=== PATIENT | male | born 1990 | race African-American/Black ===

== ENCOUNTER 2022-06-06 16:53 | Emergency (ER) | payer MEDICAID ==
[~2022-06-06] VITALS: Ht 177.8 cm; Wt 72.6 kg
[~2022-06-06 16:53] MED LIST: CEPH500C PO; D-ME118S33 PO; TRM50T PO
[2022-06-06] MEDS ORDERED: HYDROcodone/APAP 5 MG/325 MG (LORTAB) TAB PO ONE (17:15)
--- NOTE | 2022-06-06 17:16 | ED EENT ---
History of Present Illness General Stated Complaint: TOOTH PAIN Source: patient Exam Limitations: no limitations History of Present Illness Date Seen by Provider: Jun 06, 2022 Time Seen by Provider: 17:13 Initial Comments Patient is a 31-year-old male who presents ED with right upper dental and lower tooth pain. Pain over the past several months worse over the past few days. Was seen at [facility] 2 weeks ago was prescribed amoxicillin but did not take the full course as his pain improved. Has been taken Tylenol with very minimal improvement. Intermittent right upper facial swelling. Denies of any fever, chills, nausea, vomiting, diarrhea. Patient scheduled follow-up with a dentist on June 26. Requesting something for pain until then. Allergies and Home Medications Allergies Coded Allergies: No Known Drug Allergies (Unverified , 04/05/13) Patient Home Medication List Home Medication List Reviewed: Yes Clindamycin HCl (Clindamycin HCl) 300 Mg Capsule, 300 MG PO TID Prescribed by: RENETTA REYNA on 06/06/22 1720 D-Methorphan Hb/P-Epd Hcl/Bpm (Bromfed Dm Cough Syrup) 118 Ml Syrup, 5 ML PO Q4H PRN for COUGH Prescribed by: EILEEN MACK on 01/18/15 1321 Hydrocodone/Acetaminophen (Hydrocodone-Acetamin 5-325 mg) 5 Mg-325 Mg Tablet, 1 TAB PO Q4H PRN for PAIN-MODERATE (5-7) Prescribed by: RENETTA REYNA on 06/06/22 1720 Ibuprofen (Ibuprofen) 800 Mg Tablet, 800 MG PO Q8H PRN for PAIN Prescribed by: RENETTA REYNA on 06/06/22 1720 Review of Systems Review of Systems Constitutional: No chills, No diaphoresis, No malaise, No weakness Eyes: Denies Blurred Vision, Denies Drainage, Denies Decreased Acuity Ears: Denies Dizziness, Denies Pain Mouth: pain, swelling Throat: denies swelling, denies discharge Respiratory: No cough Cardiovascular: No chest pain Gastrointestinal: No abdominal pain, No diarrhea, No nausea, No vomiting Musculoskeletal: No back pain, No joint pain Skin: No change in color, No change in hair/nails All Other Systems Reviewed Negative Unless Noted: Yes Past Ckvgnsy-Dvdjkn-Ginycc Hx Immunizations Up To Date Tetanus Booster (TDap): More than 5yrs Seasonal Allergies Seasonal Allergies: No Past Medical History Reproductive Disorders: No Physical Exam Vital Signs Vital Signs - First Documented 06/06/22 06/06/22 17:14 17:28 Temp 36.6 Pulse 77 Resp 16 B/P (MAP) 139/86 (103) Pulse Ox 98 O2 Delivery Room Air Height, Weight, BMI Height: 5'9" Weight: 135lbs. oz. 61.099473he; BMI Method:Stated General Appearance: WD/WN, no apparent distress Eyes: bilateral eye normal inspection, bilateral eye PERRL, bilateral eye EOMI Ears: bilateral ear auricle normal, bilateral ear canal normal, bilateral ear TM normal, bilateral ear bleeding Nose: normal inspection Mouth/Throat: other (poor dentition throughout. Tenderness to the right upper and lower second molar. Decay noted throughout. Gum swelling and erythema. 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, no motor/sensory deficits, alert Progress/Results/Core Measures Results/Orders My Orders Orders - FAROOQ SORENSON Hydrocodone/Apap 5/325 Tablet (Lortab 5 (06/06/22 17:15) Medications Given in ED Current Medications Medications Dose Ordered Sig/Paige Route Start Time Stop Time Status Last Admin Dose Admin Acetaminophen/ Hydrocodone Bitart 1 ea ONCE ONCE PO 06/06/22 17:15 06/06/22 17:16 DC 06/06/22 17:24 1 EA Vital Signs/I&O 06/06/22 06/06/22 17:14 17:28 Temp 36.6 36.6 Pulse 77 82 Resp 16 17 B/P (MAP) 139/86 (103) 134/72 Pulse Ox 98 O2 Delivery Room Air Room Air Departure Communication (PCP) Patient is a 31-year-old male who presents the ED for right upper and lower dental pain. Dental pain over the past several months and has gotten worse over the past few weeks. Was placed on amoxicillin but did not finish his amoxicillin as his dental pain improved. Patient just finished his last dose. Increasing pain improved with Tylenol. Extensive decay. No obvious functional mass. No facial swelling or redness. Does not appear toxic or septic. Will discharge with few days worth of stronger pain medication. Schedule follow-up with dentist here in 2 weeks. Discharged with clindamycin since he just took amoxicillin. Discussed taking the full dose. Recommend eating with the clindamycin and consider probiotic. If any worsening symptoms return back to ED for further evaluation Impression Primary Impression: Toothache Disposition: HOME, SELF-CARE Condition: Stable Departure-Patient Inst. Decision time for Depature: 17:15 Referrals: [facility],LOCAL PHYSICIAN (PCP) Primary Care Physician Patient Instructions: Dental Pain Scripts Ibuprofen (Ibuprofen) 800 Mg Tablet 800 MG PO Q8H PRN for PAIN, #16 TAB Prov: FAROOQ SORENSON 06/06/22 Hydrocodone/Acetaminophen (Hydrocodone-Acetamin 5-325 mg) 5 Mg-325 Mg Tablet 1 TAB PO Q4H PRN for PAIN-MODERATE (5-7), #8 TAB Prov: FAROOQ SORENSON 06/06/22 Clindamycin HCl (Clindamycin HCl) 300 Mg Capsule 300 MG PO TID for 7 Days, #21 CAP Prov: FAROOQ SORENSON 06/06/22 FAROOQ SORENSON Jun 06, 2022 17:16
[2022-06-06] MEDS ORDERED: ACHD5005 PO (17:20)
[2022-06-06] MEDS ORDERED: IBUP-1780 PO (17:20)
[2022-06-06] MEDS ORDERED: CLIN-144 PO (17:20)
[2022-06-06 17:28] VITALS: BP 134/72
== END 2022-06-06 17:28 | disposition home or self-care (01) ==
LOC: EDUNIT# 16:53 → ER 16:57
DX: K08.89 Other specified disorders of teeth and supporting structures (principal); Z28.310 Unvaccinated for COVID-19
CPT/HCPCS: 99283

== ENCOUNTER 2022-06-26 15:37 | Emergency (ER) | payer MEDICAID ==
[~2022-06-26] VITALS: Ht 177.8 cm; Wt 74.8 kg
[~2022-06-26 15:37] MED LIST changes: +ACHD5005 PO; +CLIN-144 PO; +IBUP-1780 PO
[2022-06-26] MEDS ORDERED: ASPIRIN 81 MG CHEW (CHILDREN'S ASA) PO ONE (16:00)
[2022-06-26 16:05] LABS: BASOPHILS # (AUTO) 0.1 10^3/uL (0.0-0.1); BASOPHILS % (AUTO) 1 % (0-10); EOSINOPHILS # (AUTO) 0.2 10^3/uL (0.0-0.3); EOSINOPHILS % (AUTO) 2 % (0-10); HEMATOCRIT 46 % (40-54); HEMOGLOBIN 15.6 g/dL (13.3-17.7); LYMPHOCYTES # (AUTO) 1.9 10^3/uL (1.0-4.0); LYMPHOCYTES % (AUTO) 20 % (12-44); MEAN CORPUSCULAR HEMOGLOBIN 33 pg (25-34); MEAN CORPUSCULAR HGB CONC 34 g/dL (32-36); MEAN CORPUSCULAR VOLUME 95 fL (80-99); MEAN PLATELET VOLUME 9.4 fL (9.0-12.2); MONOCYTES # (AUTO) 0.6 10^3/uL (0.0-1.0); MONOCYTES % (AUTO) 6 % (0-12); NEUTROPHILS % (AUTO) 71 % (42-75); PLATELET COUNT 382 10^3/uL (130-400); WHITE BLOOD COUNT 9.8 10^3/uL (4.3-11.0)
--- NOTE | 2022-06-26 16:07 | ED Chest Pain ---
General Chief Complaint: Chest Pain Stated Complaint: SOA/LEFT ARM PAIN Source: patient Exam Limitations: no limitations History of Present Illness Date Seen by Provider: Jun 26, 2022 Time Seen by Provider: 16:06 Initial Comments Patient is a 31-year-old male who presents ED for chest tightness, shortness of breath and left arm pain. He states he has been feeling short of breath over the past 2 months. Denies of any wheezing or cough. Started having chest t ightness started 3 days ago located substernal without radiation. Initially was intermittent but been constant since last night. Start developing pain to the left shoulder with numbness and tingling to the left hand. Denies history of similar symptoms. History of marijuana use. Drinks alcohol periodically. Denies nausea, vomiting, diarrhea fever, chills. Denies syncope with exertion. No family history of sudden cardiac . Denies history of hypertension, diabetes or high cholesterol. Allergies and Home Medications Allergies Coded Allergies: No Known Drug Allergies (Unverified , 04/05/13) Patient Home Medication List Home Medication List Reviewed: Yes Albuterol Sulfate (Proair Hfa) 1 Puff Puff, 2 PUFF IH Q4H Prescribed by: RENETTA REYNA on 06/26/22 191 Clindamycin HCl (Clindamycin HCl) 300 Mg Capsule, 300 MG PO TID Prescribed by: RENETTA REYNA on 06/06/221719 D-Methorphan Hb/P-Epd Hcl/Bpm (Bromfed Dm Cough Syrup) 118 Ml Syrup, 5 ML PO Q4H PRN for COUGH Prescribed by: EILEEN MACK on 01/18/15 1321 Hydrocodone/Acetaminophen (Hydrocodone-Acetamin 5-325 mg) 5 Mg-325 Mg Tablet, 1 TAB PO Q4H PRN for PAIN-MODERATE (5-7) Prescribed by: RENETTA REYNA on 06/06/22 172 Ibuprofen (Ibuprofen) 800 Mg Tablet, 800 MG PO Q8H PRN for PAIN Prescribed by: RENETTA REYNA on 06/06/22 172 Review of Systems Review of Systems Constitutional: No chills, No diaphoresis, No malaise, No weakness EENTM: No Blurred Vision, No Double Vision, No Eye Pain Respiratory: Denies Cough, Denies Orthopnea; Shortness of Air Gastrointestinal: Denies Abdominal Pain Genitourinary: Denies Burning, Denies Discharge, Denies Frequency Musculoskeletal: No back pain, No joint pain All Other Systems Reviewed Negative Unless Noted: Yes Past Hqofpuf-Cgbufz-Beipos Hx Immunizations Up To Date Tetanus Booster (TDap): More than 5yrs Seasonal Allergies Seasonal Allergies: No Past Medical History Reproductive Disorders: No Physical Exam Vital Signs Vital Signs - First Documented Capillary Refill : Height, Weight, BMI Height: 5'9" Weight: 135lbs. oz. 61.039157tk; 22.00 BMI Method:Stated General Appearance: No Apparent Distress, WD/WN HEENT: PERRL/EOMI, TMs Normal, Normal ENT Inspection, Pharynx Normal Neck: Full Range of Motion, Normal Inspection, Non Tender, Supple Respiratory: Chest Non Tender, Lungs Clear, Normal Breath Sounds, No Accessory Muscle Use, No Respiratory Distress Cardiovascular: Regular Rate, Rhythm, No Edema, No Gallop Gastrointestinal: Normal Bowel Sounds, No Organomegaly, No Pulsatile Mass, Non Tender Extremity: Normal Capillary Refill, Normal Inspection, Normal Range of Motion, Non Tender Neurologic/Psychiatric: Alert, Oriented x3, No Motor/Sensory Deficits, Normal Mood/Affect, 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 Skin: Normal Color, Warm/Dry Progress/Results/Core Measures Results/Orders Lab Results Laboratory Tests Test 06/26/22 15:55 06/26/22 16:32 06/26/22 18:35 Range/Units White Blood Count 9.8 4.3-11.0 10^3/uL Red Blood Count 4.80 4.30-5.52 10^6/uL Hemoglobin 15.6 13.3-17.7 g/dL Hematocrit 46 40-54 % Mean Corpuscular Volume 95 80-99 fL Mean Corpuscular Hemoglobin 33 25-34 pg Mean Corpuscular Hemoglobin Concent 34 32-36 g/dL Red Cell Distribution Width 12.0 10.0-14.5 % Platelet Count 382 130-400 10^3/uL Mean Platelet Volume 9.4 9.0-12.2 fL Immature Granulocyte % (Auto) 0 % Neutrophils (%) (Auto) 71 42-75 % Lymphocytes (%) (Auto) 20 12-44 % Monocytes (%) (Auto) 6 0-12 % Eosinophils (%) (Auto) 2 0-10 % Basophils (%) (Auto) 1 0-10 % Neutrophils # (Auto) 7.0 1.8-7.8 10^3/uL Lymphocytes # (Auto) 1.9 1.0-4.0 10^3/uL Monocytes # (Auto) 0.6 0.0-1.0 10^3/uL Eosinophils # (Auto) 0.2 0.0-0.3 10^3/uL Basophils # (Auto) 0.1 0.0-0.1 10^3/uL Immature Granulocyte # (Auto) 0.0 0.0-0.1 10^3/uL Prothrombin Time 14.3 12.2-14.7 SEC INR Comment 1.1 0.8-1.4 Activated Partial Thromboplast Time 31 24-35 SEC D-Dimer < 0.20 0.00-0.49 UG/ML Sodium Level 140 135-145 MMOL/L Potassium Level 3.9 3.6-5.0 MMOL/L Chloride Level 103 98-107 MMOL/L Carbon Dioxide Level 25 21-32 MMOL/L Anion Gap 12 5-14 MMOL/L Blood Urea Nitrogen 10 7-18 MG/DL Creatinine 0.86 0.60-1.30 MG/DL Estimat Glomerular Filtration Rate 119 BUN/Creatinine Ratio 12 Glucose Level 86 70-105 MG/DL Calcium Level 9.4 8.5-10.1 MG/DL Corrected Calcium 8.5-10.1 MG/DL Magnesium Level 2.0 1.6-2.4 MG/DL Total Bilirubin 1.0 0.1-1.0 MG/DL Aspartate Amino Transf (AST/SGOT) 16 5-34 U/L Alanine Aminotransferase (ALT/SGPT) 15 0-55 U/L Alkaline Phosphatase 56 40-136 U/L Myoglobin 22.2 10.0-92.0 NG/ML Troponin I < 0.028 < 0.028 <0.028 NG/ML B-Type Natriuretic Peptide < 10.0 <100.0 PG/ML Total Protein 7.8 6.4-8.2 GM/DL Albumin 4.8 H 3.2-4.5 GM/DL Thyroid Stimulating Hormone (TSH) 0.21 L 0.35-4.94 UIU/ML Urine Opiates Screen POSITIVE H NEGATIVE Urine Oxycodone Screen NEGATIVE NEGATIVE Urine Methadone Screen NEGATIVE NEGATIVE Urine Propoxyphene Screen NEGATIVE NEGATIVE Urine Barbiturates Screen NEGATIVE NEGATIVE Ur Tricyclic Antidepressants Screen NEGATIVE NEGATIVE Urine Phencyclidine Screen NEGATIVE NEGATIVE Urine Amphetamines Screen NEGATIVE NEGATIVE Urine Methamphetamines Screen NEGATIVE NEGATIVE Urine Benzodiazepines Screen NEGATIVE NEGATIVE Urine Cocaine Screen NEGATIVE NEGATIVE Urine Cannabinoids Screen POSITIVE H NEGATIVE My Orders Orders - FAROOQ SORENSON PA Ekg Tracing (06/26/22 15:47) Cbc With Automated Diff (06/26/22 15:58) Magnesium (06/26/22 15:58) Chest 1 View, Ap/Pa Only (06/26/22 15:58) Ekg Tracing (06/26/22 15:58) Comprehensive Metabolic Panel (06/26/22 15:58) Myoglobin Serum (06/26/22 15:58) Protime With Inr (06/26/22 15:58) Partial Thromboplastin Time (06/26/22 15:58) Ed Iv/Invasive Line Start (06/26/22 15:58) Bnp [place] (06/26/22 15:58) Fibrin Degradation Products (06/26/22 15:58) Troponin I [place] (06/26/22 15:58) Aspirin Chewable Tablet (Baby Aspirin Ch (06/26/22 16:00) Drug Screen Stat (Urine) (06/26/22 16:23) Morphine Injection (Morphine Injection (06/26/22 17:00) Thyroid Stimulating Hormone (06/26/22 17:08) Troponin I [place] (06/26/22 18:09) Ketorolac Injection (Toradol Injection) (06/26/22 18:30) Medications Given in ED Current Medications Medications Dose Ordered Sig/Paige Route Start Time Stop Time Status Last Admin Dose Admin Aspirin 324 mg ONCE ONCE PO 06/26/22 16:00 06/26/22 16:01 DC 06/26/22 16:15 324 MG Ketorolac Tromethamine 30 mg ONCE ONCE IVP 06/26/22 18:30 06/26/22 18:31 DC 06/26/22 18:44 30 MG Morphine Sulfate 4 mg ONCE ONCE IVP 06/26/22 17:00 06/26/22 17:01 DC 06/26/22 17:03 4 MG Vital Signs/I&O 06/26/22 06/26/22 06/26/22 15:46 15:46 19:31 Temp 36.8 Pulse 100 98 Resp 18 16 B/P (MAP) 156/90 (112) 123/90 Pulse Ox 99 98 O2 Delivery Room Air Room Air Room Air Departure Communication (PCP) Patient is a 31-year-old male presents ED chest pain shortness of breath. Shortness of breath for the past 2 months with this chest tightness for the past 3 days worse last night with tingling in his left arm. No known cardiac history. No family history of sudden cardiac . Denies hypertension, diabetes or high cholesterol. He remains hypertensive 150 systolic with multiple reads. This improved once pain improved. Was initially given morphine on arrival rated pain 3 out of 10 and was given Toradol with significant improvement. Does smoke marijuana and smokes cigarettes daily. No history of asthma, COPD. EKG was concerning for LVH pattern with ST depression in the inferior and lateral leads. Concerning for potential right heart strain. D- dimer was negative. Chest x-ray was unremarkable. Lab work was otherwise unremarkable with an initial negative troponin. 2-hour troponin was negative as well. Did get a full aspirin on arrival. Denies excessive caffeine use. Slightly lower TSH 0.21. Normal white blood count. His does not appear to be infectious. Concerning for cardiac versus pulmonary etiology. Other potential possibility would be hypertrophic cardiomyopathy. Patient was discussed with Dr. Moe who went over the case with myself and discussed outpatient follow- up as he is currently pain-free in the office. Did discuss starting on metoprolol but patient had 2 or 3 improving blood pressure medication. Recommend no running or exerting himself until seen by cardiology. Did discuss trying albuterol inhaler if this is some form of pulmonary component. No notable wheezing noted. Discussed smoking cessation. If any worsening symptoms such as chest pain to return back to ED. Impression Primary Impression: Chest pain Additional Impression: Dyspnea Disposition: 01 HOME, SELF-CARE Condition: Stable Departure-Patient Inst. Decision time for Depature: 19:16 Referrals: NO,LOCAL PHYSICIAN (PCP) Primary Care Physician AIDEE MOE JR, MD Patient Instructions: Chest Pain, Adult ED Add. Discharge Instructions: You need to follow-up with cardiology for further evaluation. Recommend no exercise, or exerting yourself at a high rate. We will provide inhaler to take as needed to see if this will help with any of the shortness of breath and chest tightness All discharge instructions reviewed with patient and/or family. Voiced understanding. Scripts Albuterol Sulfate (PROAIR HFA) 1 Puff Puff 2 PUFF IH Q4H, #1 EA 1 PUFF = 90 MCG Prov: FAROOQ SORENSON 06/26/22 FAROOQ SORENSON Jun 26, 2022 16:07
[2022-06-26 16:14] LABS: ALBUMIN 4.8 GM/DL (3.2-4.5)
[2022-06-26 16:15] LABS: CHLORIDE 103 MMOL/L (98-107); POTASSIUM 3.9 MMOL/L (3.6-5.0); SODIUM 140 MMOL/L (135-145)
[2022-06-26 16:16] LABS: CALCIUM 9.4 MG/DL (8.5-10.1)
[2022-06-26 16:17] LABS: GLUCOSE 86 MG/DL (70-105); TOTAL PROTEIN 7.8 GM/DL (6.4-8.2)
[2022-06-26 16:18] LABS: CARBON DIOXIDE 25 MMOL/L (21-32); INR 1.1 (0.8-1.4); PROTHROMBIN TIME PATIENT 14.3 SEC (12.2-14.7)
[2022-06-26 16:20] LABS: ALKALINE PHOSPHATASE 56 U/L (40-136)
[2022-06-26 16:21] LABS: CREATININE SERUM 0.86 MG/DL (0.60-1.30); GFR ESTIMATED 119
[2022-06-26 16:22] LABS: BUN/CREATININE RATIO 12
[2022-06-26 16:24] LABS: ALANINE AMINOTRANSFERASE 15 U/L (0-55)
[2022-06-26 16:50] LABS: AMPHETAMINE SCREEN, URINE NEGATIVE (NEGATIVE); BARBITURATE SCREEN URINE NEGATIVE (NEGATIVE); BENZODIAZEPINES SCREEN URINE NEGATIVE (NEGATIVE); CANNABINOID SCREEN, URINE POSITIVE (NEGATIVE); COCAINE SCREEN URINE NEGATIVE (NEGATIVE); METHADONE STAT NEGATIVE (NEGATIVE); OPIATE SCREEN URINE POSITIVE (NEGATIVE); OXYCODONE STAT NEGATIVE (NEGATIVE); PROPOXYPHENE STAT NEGATIVE (NEGATIVE); TRICYCLIC ANTIDEPRESSANTS SCRE NEGATIVE (NEGATIVE)
--- NOTE | 2022-06-26 16:56 | Diagnostic Imaging Report ---
INDICATION: Chest pain COMPARISON: 11/11/2015 FINDINGS: Single frontal view of the chest demonstrates normal heart size and pulmonary vascularity. The lungs are well aerated and clear. No large pleural effusion or pneumothorax is seen. The visualized osseous structures show no acute abnormalities. IMPRESSION: 1. No acute cardiopulmonary process. Dictated by: Dictated on workstation # [id number]
[2022-06-26] MEDS ORDERED: morphine INJ 10 MG/ML 1ML (SYR OR VIAL) IVP ONE (17:00)
[2022-06-26] MEDS ORDERED: KETOROLAC 30 MG/ML VIAL IVP ONE (18:30)
[2022-06-26] MEDS ORDERED: RT-ALBUINH IH (19:17)
[2022-06-26 19:31] VITALS: BP 123/90
== END 2022-06-26 19:23 | disposition home or self-care (01) ==
LOC: EDUNIT# 15:37 → ER 15:40
DX: R07.2 Precordial pain (principal); R06.00 Dyspnea, unspecified; M25.512 Pain in left shoulder; R03.0 Elevated blood-pressure reading, without diagnosis of hypertension; R94.6 Abnormal results of thyroid function studies; F17.210 Nicotine dependence, cigarettes, uncomplicated; Z28.310 Unvaccinated for COVID-19
CPT/HCPCS: 36415; 71045; 80053; 80306; 83735; 83874; 83880; 84443; 84484; 85025; 85379; 85610; 85730; 93005

== ENCOUNTER 2022-07-15 23:54 | Emergency (ER) | payer MEDICAID ==
[~2022-07-15] VITALS: Ht 177.8 cm; Wt 70.5 kg
[~2022-07-15 23:54] MED LIST changes: +RT-ALBUINH IH
[2022-07-16 05:22] VITALS: BP 130/82
== END 2022-07-16 05:19 | disposition left against medical advice (07) ==
LOC: EDUNIT# 23:54 → ER 23:57
DX: R07.89 Other chest pain (principal); R00.2 Palpitations; Z28.310 Unvaccinated for COVID-19; Z20.822 Contact with and (suspected) exposure to COVID-19
CPT/HCPCS: 87636; 99285

== ENCOUNTER 2022-08-21 10:38 | Emergency (ER) | payer MEDICAID ==
[~2022-08-21] VITALS: Ht 178 cm; Wt 75.0 kg
--- NOTE | 2022-08-21 10:47 | ED General ---
General Chief Complaint: Dental Problems/Pain Stated Complaint: DENTAL PAIN Source of Information: Patient Exam Limitations: No Limitations History of Present Illness Date Seen by Provider: Aug 21, 2022 Time Seen by Provider: 10:42 Initial Comments 32-year-old male presents for right upper dental pain. He has had pain in this area before. He had a tooth pulled previously but he thinks the tooth next to it is the problem currently. No fevers or chills. He has pain with eating and pressure to the tooth but none outside of that. He has not tried anything for pain. No difficulty swallowing. Allergies and Home Medications Allergies Coded Allergies: No Known Drug Allergies (Unverified , 04/05/13) Patient Home Medication List Home Medication List Reviewed: Yes Albuterol Sulfate (Proair Hfa) 1 Puff Puff, 2 PUFF IH Q4H Prescribed by: RENETTA REYNA on 06/26/22 191 Clindamycin HCl (Clindamycin HCl) 300 Mg Capsule, 300 MG PO TID Prescribed by: RENETTA REYNA on 06/06/22 1720 D-Methorphan Hb/P-Epd Hcl/Bpm (Bromfed Dm Cough Syrup) 118 Ml Syrup, 5 ML PO Q4H PRN for COUGH Prescribed by: EILEEN MACK on 01/18/15 1321 Hydrocodone/Acetaminophen (Hydrocodone-Acetamin 5-325 mg) 5 Mg-325 Mg Tablet, 1 TAB PO Q4H PRN for PAIN-MODERATE (5-7) Prescribed by: RENETTA REYNA on 06/06/22 1720 Ibuprofen (Ibuprofen) 800 Mg Tablet, 800 MG PO Q8H PRN for PAIN Prescribed by: RENETTA REYNA on 06/06/22 1720 Penicillin V Potassium (Penicillin V Potassium) 500 Mg Tablet, 500 MG PO TID Prescribed by: YESSI BOWERS MD on 08/21/22 1054 Review of Systems Review of Systems Constitutional: no symptoms reported EENTM: other (Right upper dental pain) Respiratory: no symptoms reported Cardiovascular: no symptoms reported Gastrointestinal: no symptoms reported Genitourinary: no symptoms reported Musculoskeletal: no symptoms reported Skin: no symptoms reported Psychiatric/Neurological: No Symptoms Reported Hematologic/Lymphatic: No Symptoms Reported Immunological/Allergic: no symptoms reported Past Pkkgayo-Mygjpm-Cclmup Hx Patient Social History Tobacco Use?: Yes Use of E-Cig and/or Vaping dev: No Substance use?: No Alcohol Use?: No Immunizations Up To Date Tetanus Booster (TDap): More than 5yrs First/Initial COVID19 Vaccinat: N/A Seasonal Allergies Seasonal Allergies: No Past Medical History Surgery/Hospitalization HX: DENIES Reproductive Disorders: No Family Medical History Reviewed Nursing Family Hx No Pertinent Family Hx Physical Exam Vital Signs Vital Signs - First Documented 08/21/22 10:43 Temp 36.5 Pulse 69 Resp 18 B/P (MAP) 152/92 (112) O2 Delivery Room Air Capillary Refill : Height, Weight, BMI Height: 5'9" Weight: 135lbs. oz. 61.543632vq; 22.00 BMI Method:Stated General Appearance: No Apparent Distress, WD/WN HEENT: Normal ENT Inspection, Pharynx Normal, Other (Dental caries posterior aspect of the premolar on the right upper jaw. No drainable abscess.) Neck: Normal Inspection, Non Tender, Supple Respiratory: Chest Non Tender, Lungs Clear, Normal Breath Sounds, No Accessory Muscle Use, No Respiratory Distress Cardiovascular: Regular Rate, Rhythm, No Edema, No Gallop, No JVD, No Murmur, Normal Peripheral Pulses Gastrointestinal: Normal Bowel Sounds, No Organomegaly, No Pulsatile Mass, Non Tender, Soft Extremity: Normal Capillary Refill, Normal Inspection, Normal Range of Motion, Non Tender, No Calf Tenderness Neurologic/Psychiatric: Alert, Oriented x3, Normal Mood/Affect Progress/Results/Core Measures Suspected Sepsis SIRS Temperature: Pulse: Respiratory Rate: Blood Pressure / Mean: Results/Orders Vital Signs/I&O 08/21/22 10:43 Temp 36.5 Pulse 69 Resp 18 B/P (MAP) 152/92 (112) O2 Delivery Room Air Capillary Refill : Departure Communication (Admissions) Patient is hemodynamically stable. No evidence for dental abscess that requires drainage. We will start him on antibiotics. Given recommendations for pain control and dental follow-up. Impression Primary Impression: Infected dental caries Disposition: HOME, SELF-CARE Condition: Stable Departure-Patient Inst. Decision time for Depature: 10:53 Referrals: NO,LOCAL PHYSICIAN (PCP/Family) Primary Care Physician Patient Instructions: Dental Pain Add. Discharge Instructions: Take the antibiotics as prescribed until they are gone. Call the dentist to schedule a follow-up appointment. Use ibuprofen and Tylenol as needed for pain. Return to the emergency department for any severe concerns All discharge instructions reviewed with patient and/or family. Voiced u nderstanding. Scripts Penicillin V Potassium (Penicillin V Potassium) 500 Mg Tablet 500 MG PO TID for 7 Days, #21 TAB Prov: YESSI BOWERS DO 08/21/22 YESSI BOWERS DO Aug 21, 2022 10:47
[2022-08-21] MEDS ORDERED: PENI500T PO (10:54)
[2022-08-21 10:58] VITALS: BP 152/92
== END 2022-08-21 10:58 | disposition home or self-care (01) ==
LOC: EDUNIT# 10:38 → ER 10:41
DX: K02.9 Dental caries, unspecified (principal); Z72.0 Tobacco use; Z28.310 Unvaccinated for COVID-19
CPT/HCPCS: 99282

== ENCOUNTER 2023-01-24 15:09 | Emergency (ER) | payer MEDICAID ==
[~2023-01-24] VITALS: Ht 175 cm; Wt 72.6 kg
[~2023-01-24 15:09] MED LIST changes: +ALBU8.5H6 IH; +PENI500T PO; -RT-ALBUINH IH
--- NOTE | 2023-01-24 15:24 | ED Upper Extremity ---
General Chief Complaint: Upper Extremity Stated Complaint: RIGHT HAND INJURY Source: patient Exam Limitations: no limitations (FAROOQ SORENSON) History of Present Illness Date Seen by Provider: Jan 24, 2023 Time Seen by Provider: 15:21 Initial Comments Patient is a 32-year-old male who presents ED with right hand pain. Patient states he was boxing last night around 1030. States he punched a corner of a door frm. The door frame did not break. Had immediate pain to his thumb and index finger on his right hand. Took Tylenol. Increase in swelling with decreased range of motion. No obvious bone deformity. No history of previous fracture. He reports 1 punch. Denies of any wrist pain, fever, chills, nausea, vomit, diarrhea. (FAROOQ SORENSON) Allergies and Home Medications Allergies Coded Allergies: No Known Drug Allergies (Unverified , 04/05/13) Patient Home Medication List Home Medication List Reviewed: Yes (FAROOQ SORENSON) Albuterol Sulfate (Ventolin Hfa) 1 Puff Puff, 2 PUFF IH Q4H Prescribed by: RENETTA REYNA on 06/26/22 191 Clindamycin HCl (Clindamycin HCl) 300 Mg Capsule, 300 MG PO TID Prescribed by: RENETTA REYNA on 06/06/22 172 D-Methorphan Hb/P-Epd Hcl/Bpm (Bromfed Dm Cough Syrup) 118 Ml Syrup, 5 ML PO Q4H PRN for COUGH Prescribed by: EILEEN MACK on 01/18/15 1321 Hydrocodone/Acetaminophen (Hydrocodone-Acetamin 5-325 mg) 5 Mg-325 Mg Tablet, 1 TAB PO Q4H PRN for PAIN-MODERATE (5-7) Prescribed by: RENETTA REYNA on 06/06/22 1720 Ibuprofen (Ibuprofen) 800 Mg Tablet, 800 MG PO Q8H PRN for PAIN Prescribed by: RENETTA REYNA on 06/06/22 1720 Ibuprofen (Ibuprofen) 600 Mg Tablet, 600 MG PO Q6H Prescribed by: RENETTA REYNA on 01/24/23 1610 Penicillin V Potassium (Penicillin V Potassium) 500 Mg Tablet, 500 MG PO TID Prescribed by: YESSI BOWERS MD on 08/21/22 1054 Review of Systems Constitutional: No chills, No diaphoresis EENTM: No ear pain, No blurred vision, No dental problems, No mouth pain, No mouth swelling, No nose pain, No throat pain Respiratory: No cough, No dyspnea on exertion Cardiovascular: No chest pain Gastrointestinal: No abdominal pain, No diarrhea, No nausea, No vomiting Genitourinary: No decreased output, No discharge Musculoskeletal: No back pain; joint pain, joint swelling Skin: No change in color, No change in hair/nails (FAROOQ SORENSON) All Other Systems Reviewed Negative Unless Noted: Yes (FAROOQ SORENSON) Past Hqbccso-Bssrqk-Ppgewz Hx Immunizations Up To Date Tetanus Booster (TDap): More than 5yrs First/Initial COVID19 Vaccinat: N/A Second COVID19 Vaccination Anthony: N/A Third COVID19 Vaccination Date: N/A (FAROOQ SORENSON) Seasonal Allergies Seasonal Allergies: No (FAROOQ SORENSON) Past Medical History Surgery/Hospitalization HX: DENIES Reproductive Disorders: No (FAROOQ SORENSON) Family Medical History No Pertinent Family Hx (FAROOQ SORENSON) Physical Exam Vital Signs Vital Signs - First Documented 01/24/23 15:13 Temp 37.0 Pulse 102 Resp 18 B/P (MAP) 145/83 (103) Pulse Ox 99 O2 Delivery Room Air (MARZENA,MALLIKA K DO) Vital Signs Capillary Refill : (FAROOQ SORENSON) Height, Weight, BMI Height: 5'9" Weight: 135lbs. oz. 61.105921ax; 23.00 BMI Method:Stated General Appearance: WD/WN, no apparent distress HEENT: PERRL/EOMI, normal ENT inspection, TMs normal, pharynx normal Neck: non-tender, full range of motion, supple Cardiovascular: regular rate, rhythm, no edema, no gallop, no JVD Respiratory: chest non-tender, lungs clear, normal breath sounds, no respirat ory distress, no accessory muscle use Gastrointestinal: normal bowel sounds, non tender, soft Back: normal inspection, no CVA tenderness Shoulder: normal inspection, non-tender Elbow/Forearm: normal inspection, non-tender, no evidence of injury, normal ROM Wrist: Yes normal inspection, Yes non-tender, Yes no evidence of injury, Yes normal ROM Hand: Right, bone tenderness (First index PIP joint tenderness, first MCP joint tenderness with swelling noted to the dorsum hand along the thumb and first index. Limited flexion of the index finger.) Neurologic/Psychiatric: drapery operator II-XII nml as tested, no motor/sensory deficits, alert, normal mood/affect, oriented x 3 Skin: normal color, warm/dry (FAROOQ SORENSON) Departure Communication (PCP) Patient presents ED with right hand pain to the index finger and thumb. Tenderness to the right proximal thumb, index at the DIP, PIP and MCP joint. Significant swelling. Ice was applied. Was given ibuprofen. Due to mechanism of injury x-ray was ordered to rule out acute fracture, muscle contusion. X-ray shows mildly displaced intra-articular fracture of the dorsal aspect of the base of the second distal phalanx. Discussed these results with patient. Patient was placed in a splint for comfort immobilization. Orthopedic follow-up in 7 to 10 days for reevaluation. Ice and anti-inflammatories for pain and swelling. Return precautions were discussed with patient. (FAROOQ SORENSON) Impression Primary Impression: Finger fracture Disposition: 01 HOME, SELF-CARE Condition: Stable Departure-Patient Inst. Decision time for Depature: 16:10 (FAROOQ SORENSON) Referrals: NO,LOCAL PHYSICIAN (PCP) Primary Care Physician DORIAN GABRIEL MD Patient Instructions: Finger Fracture ED Add. Discharge Instructions: Recommend following up with orthopedic in the next 1 to 2 weeks for reevaluation with x-ray. Ibuprofen to help with pain and swelling. Ice for the next 3 to 4 days at least 3-4 times a day for 20 minutes each All discharge instructions reviewed with patient and/or family. Voiced understanding. Scripts Ibuprofen (Ibuprofen) 600 Mg Tablet 600 MG PO Q6H for PAIN, #20 TAB 0 Refills Prov: FAROOQ SORENSON 01/24/23 ATTENDING PHYSICIAN NOTE: I WAS PHYSICALLY PRESENT ER PHYSICIAN, BUT I WAS NOT INVOLVED IN ANY DECISION MAKING OR ANY CARE OF THIS PATIENT, AND I AM NOT COLLABORATING PHYSICIAN. (MARZENAMALLIKA ZACHARY A PA Jan 24, 2023 15:24 MALLIKA IVAN DO Jan 25, 2023 06:38
[2023-01-24] MEDS ORDERED: IBUPROFEN 600 MG (MOTRIN) TAB PO ONE (15:30)
--- NOTE | 2023-01-24 15:44 | Diagnostic Imaging Report ---
EXAMINATION: Right hand radiographs, 3 views. COMPARISON: None. HISTORY: 32-year-old male, right hand swelling and pain. FINDINGS: There is a healed remote prior fracture deformity of the distal aspect of the fifth metacarpal. There is a mildly displaced intra-articular fracture involving the dorsal aspect of the base of what appears to be the second distal phalanx, best seen on the lateral view. Recommend correlation for focal pain at this exact site. There is no otherwise identified potential acute fracture. There is no radiopaque foreign body. IMPRESSION: 1. Mildly displaced intra-articular fracture of the dorsal aspect of the base of what appears to be the second distal phalanx. Recommend correlation for focal pain at this exact site. 2. Healed prior fracture deformity of the distal aspect of the fifth metacarpal. Dictated by: Dictated on workstation # [id number]
[2023-01-24 16:07] VITALS: BP 106/86
[2023-01-24] MEDS ORDERED: IBUP-1773 PO (16:10)
== END 2023-01-24 16:16 | disposition home or self-care (01) ==
LOC: EDUNIT# 15:09 → ER 15:11
DX: S62.630A Displaced fracture of distal phalanx of right index finger, initial encounter for closed fracture (principal); Z28.310 Unvaccinated for COVID-19; Y04.8XXA Assault by other bodily force, initial encounter
CPT/HCPCS: 29130; 73130

== ENCOUNTER 2023-02-12 15:32 | Emergency (ER) | payer MEDICAID ==
[~2023-02-12] VITALS: Ht 176 cm; Wt 72.0 kg
[~2023-02-12 15:32] MED LIST changes: +IBUP-1773 PO
[2023-02-12] MEDS ORDERED: PENI500T PO (15:54)
--- NOTE | 2023-02-12 15:54 | ED EENT ---
History of Present Illness General Chief Complaint: Dental Problems/Pain Stated Complaint: DENTAL PAIN Nursing Triage Note: pt c/o left dental pain for several weeks. claims that ibuprofen and orajel aren't working for the pain. dentist appt is 2 weeks away. Source: patient Exam Limitations: no limitations History of Present Illness Date Seen by Provider: Feb 12, 2023 Time Seen by Provider: 15:40 Initial Comments 32-year-old male with no pertinent past medical history coming in due to left lower mouth pain for several weeks. He states he does have a cavity on that side, and has an appointment with a dentist in 2 weeks. No fever, swelling, difficulty eating, opening his mouth, voice changes, or any other concerns. He has been trying ibuprofen and Orajel which only helps sometimes. Allergies and Home Medications Allergies Coded Allergies: No Known Drug Allergies (Unverified , 04/05/13) Patient Home Medication List Home Medication List Reviewed: Yes Albuterol Sulfate (Ventolin Hfa) 1 Puff Puff, 2 PUFF IH Q4H Prescribed by: RENETTA REYNA on 06/26/22 1917 Clindamycin HCl (Clindamycin HCl) 300 Mg Capsule, 300 MG PO TID Prescribed by: RENETTA REYNA on 06/06/22 1720 D-Methorphan Hb/P-Epd Hcl/Bpm (Bromfed Dm Cough Syrup) 118 Ml Syrup, 5 ML PO Q4H PRN for COUGH Prescribed by: EILEEN MACK on 01/18/15 1321 Hydrocodone/Acetaminophen (Hydrocodone-Acetamin 5-325 mg) 5 Mg-325 Mg Tablet, 1 TAB PO Q4H PRN for PAIN-MODERATE (5-7) Prescribed by: RENETTA REYNA on 06/06/22 1720 Ibuprofen (Ibuprofen) 800 Mg Tablet, 800 MG PO Q8H PRN for PAIN Prescribed by: RENETTA REYNA on 06/06/22 1720 Ibuprofen (Ibuprofen) 600 Mg Tablet, 600 MG PO Q6H Prescribed by: RENETTA REYNA on 01/24/23 1610 Penicillin V Potassium (Penicillin V Potassium) 500 Mg Tablet, 500 MG PO TID Prescribed by: YESSI BOWERS MD on 08/21/22 1054 Review of Systems Review of Systems Constitutional: No fever Eyes: No Symptoms Reported Ears: No Symptoms Reported Nose: no symptoms reported Mouth: see HPI Throat: no symptoms reported Respiratory: no symptoms reported Cardiovascular: no symptoms reported Gastrointestinal: no symptoms reported Past Ulprznc-Lggpkp-Laouzn Hx Patient Social History Tobacco Use?: Yes Tobacco type used: Cigarettes Substance use?: No Alcohol Use?: No Pt feels they are or have been: No Immunizations Up To Date Tetanus Booster (TDap): More than 5yrs Influenza Vaccine Up-to-Date: No; Not Current First/Initial COVID19 Vaccinat: N/A Second COVID19 Vaccination Anthony: N/A Third COVID19 Vaccination Date: N/A Seasonal Allergies Seasonal Allergies: No Past Medical History Surgery/Hospitalization HX: DENIES Reproductive Disorders: No Family Medical History No Pertinent Family Hx Physical Exam Vital Signs Vital Signs - First Documented 02/12/23 15:40 Temp 36.5 Pulse 70 Resp 20 B/P (MAP) 146/81 (102) Pulse Ox 99 O2 Delivery Room Air Height, Weight, BMI Height: 5'9" Weight: 135lbs. oz. 61.814944cl; 23.00 BMI Method:Stated General Appearance: WD/WN, no apparent distress Eyes: bilateral eye normal inspection Ears: bilateral ear auricle normal Nose: normal inspection Mouth/Throat: dental tenderness (Multiple dental caries, maximal tenderness over tooth #19 with no abscess felt); No excessive drooling, No mandibular swell ing, No pharynx swelling, No tongue swollen, No tonsillar exudate; other (No trismus, normal voice, tolerating secretions, uvula midline) Neck: non-tender, full range of motion, supple, normal inspection Cardiovascular: regular rate, rhythm, no edema, no murmur Respiratory: chest non-tender, lungs clear Gastrointestinal: soft Neurologic/Psychiatric: alert Skin: normal color, warm/dry Progress/Results/Core Measures Results/Orders Vital Signs/I&O 02/12/23 15:40 Temp 36.5 Pulse 70 Resp 20 B/P (MAP) 146/81 (102) Pulse Ox 99 O2 Delivery Room Air Blood Pressure Mean: 102 Progress Progress Note : Progress Note 32-year-old male presenting for dental pain. ABCs were intact and vitals were stable on presentation. He has no red flags that would be concerning for deeper infection such as dental abscess, pharyngeal abscess, peritonsillar abscess, and otherwise is well-appearing. We will send a prescription for antibiotics. He has follow-up with a dentist. I offered IM Toradol which he states he is okay without. He was then discharged home in stable condition with strict return precautions. Departure Impression Primary Impression: Pain, dental Disposition: HOME, SELF-CARE Condition: Stable Departure-Patient Inst. Decision time for Depature: 15:55 Referrals: NO,LOCAL PHYSICIAN (PCP/Family) Primary Care Physician Patient Instructions: Dental Pain Add. Discharge Instructions: Antibiotics were sent to the [facility] pharmacy. Please be sure to follow- up with a dentist as you stated, otherwise this will come back and likely get worse in the future. Take ibuprofen and/or Tylenol as needed for pain. Scripts Penicillin V Potassium (Penicillin V Potassium) 500 Mg Tablet 500 MG PO BID for 10 Days, #20 TAB Prov: FAROOQ WINCHESTER MD 02/12/23 Work/School Note: Work Release Form Date Seen in the Emergency Department: Feb 12, 2023 Return to Work: Feb 13, 2023 Restrictions: No Restrictions FAROOQ WINCHESTER MD Feb 12, 2023 15:54
[2023-02-12 15:58] VITALS: BP 146/81
== END 2023-02-12 16:01 | disposition home or self-care (01) ==
LOC: EDUNIT# 15:32 → ER 15:35
DX: K02.9 Dental caries, unspecified (principal); F17.210 Nicotine dependence, cigarettes, uncomplicated; Z28.310 Unvaccinated for COVID-19
CPT/HCPCS: 99282

== ENCOUNTER 2023-02-24 12:08 | Emergency (ER) | payer MEDICAID ==
[~2023-02-24] VITALS: Ht 177 cm; Wt 73.0 kg
--- NOTE | 2023-02-24 12:20 | ED General ---
General Chief Complaint: Upper Extremity Stated Complaint: LT HAND SWELLING | Nursing Triage Note: PT HAS LT HAND/ARM SWELLING THAT STARTED YESTERDAY, ITCHING ON ARMS AND LEGS, EYE LIDS SWELLING, BEEN TAKING PCN FOR ABOUT A WEEK FOR A TOOTH ACHE Source of Information: Patient Exam Limitations: No Limitations History of Present Illness Date Seen by Provider: Feb 24, 2023 Time Seen by Provider: 12:21 Initial Comments Patient is a 32-year-old male who presents to ED with left hand swelling, upper extremity itching and upper eyelid swelling. Symptoms started yesterday as he started having some pain and discomfort to his left dorsal hand. Noted some swelling. The swelling increased today. Started having itchy bilateral upper extremity. Noted his upper eyelids started to swell. Denies of any chest pain, cough, shortness of breath, vomiting or diarrhea. Patient currently on penicillin has a few doses left as he was diagnosed with a dental abscess about a week ago. He states his tooth has improved. Patient has been taking ibuprofen for the pain. Denies of any change in soaps, laundry detergents, food. Denies of any trauma to the left hand. Possible bug bite but did not see anything by him. Patient denies fever, chills, visual changes, headache, dizziness, chest pain Allergies and Home Medications Allergies Coded Allergies: No Known Drug Allergies (Unverified , 04/05/13) Patient Home Medication List Home Medication List Reviewed: Yes Albuterol Sulfate (Ventolin Hfa) 1 Puff Puff, 2 PUFF IH Q4H Prescribed by: RENETTA REYNA on 06/26/227 Clindamycin HCl (Clindamycin HCl) 300 Mg Capsule, 300 MG PO TID Prescribed by: RENETTA REYNA on 06/06/22 1720 D-Methorphan Hb/P-Epd Hcl/Bpm (Bromfed Dm Cough Syrup) 118 Ml Syrup, 5 ML PO Q4H PRN for COUGH Prescribed by: EILEEN MACK on 01/18/15 1321 Diphenhydramine HCl (Benadryl) 25 Mg Capsule, 25 MG PO Q6H PRN for ITCHING Prescribed by: RENETTA REYNA on 02/24/23 1242 Famotidine (Pepcid) 20 Mg Tablet, 20 MG PO DAILY Prescribed by: RENETTA REYNA on 02/24/23 1242 Hydrocodone/Acetaminophen (Hydrocodone-Acetamin 5-325 mg) 5 Mg-325 Mg Tablet, 1 TAB PO Q4H PRN for PAIN-MODERATE (5-7) Prescribed by: RENETTA REYNA on 06/06/22 1720 Ibuprofen (Ibuprofen) 800 Mg Tablet, 800 MG PO Q8H PRN for PAIN Prescribed by: RENETTA REYNA on 06/06/22 1720 Ibuprofen (Ibuprofen) 600 Mg Tablet, 600 MG PO Q6H Prescribed by: RENETTA REYNA on 01/24/23 1610 Penicillin V Potassium (Penicillin V Potassium) 500 Mg Tablet, 500 MG PO TID Prescribed by: YESSI BOWERS MD on 08/21/22 1054 Penicillin V Potassium (Penicillin V Potassium) 500 Mg Tablet, 500 MG PO BID Prescribed by: FAROOQ WINCHESTER on 02/12/23 1554 Prednisone (Prednisone) 20 Mg Tab, 40 MG PO DAILY Prescribed by: RENETTA REYNA on 02/24/23 1242 Review of Systems Review of Systems Constitutional: No chills, No diaphoresis, No malaise, No weakness EENTM: No ear pain, No blurred vision, No double vision Respiratory: No cough, No dyspnea on exertion, No short of breath, No stridor, No wheezing Gastrointestinal: No abdominal pain, No diarrhea, No nausea, No vomiting Musculoskeletal: No back pain, No joint pain, No muscle pain Skin: pruritus, other (swelling) All Other Systems Reviewed Negative Unless Noted: Yes Past Gbbtyof-Kagreg-Grddso Hx Immunizations Up To Date Tetanus Booster (TDap): More than 5yrs First/Initial COVID19 Vaccinat: N/A Second COVID19 Vaccination Anthony: N/A Third COVID19 Vaccination Date: N/A Seasonal Allergies Seasonal Allergies: No Past Medical History Surgery/Hospitalization HX: DENIES Reproductive Disorders: No Family Medical History No Pertinent Family Hx Physical Exam Vital Signs Vital Signs - First Documented 02/24/23 12:14 Temp 36.0 Pulse 84 Resp 18 B/P (MAP) 135/88 (104) Pulse Ox 100 O2 Delivery Room Air Capillary Refill : Less Than 3 Seconds Height, Weight, BMI Height: 5'9" Weight: 135lbs. oz. 61.512014qu; 23.00 BMI Method:Stated General Appearance: No Apparent Distress Eyes: Bilateral Eye EOMI, Bilateral Eye Other (Bilateral upper eyelid swelling) HEENT: PERRL/EOMI, TMs Normal, Normal ENT Inspection, Pharynx Normal Neck: Full Range of Motion, Normal Inspection, Non Tender, Supple Respiratory: Chest Non Tender, Lungs Clear, Normal Breath Sounds, No Accessory Muscle Use, No Respiratory Distress Cardiovascular: Regular Rate, Rhythm, No Edema, No Gallop Gastrointestinal: Normal Bowel Sounds, No Organomegaly, No Pulsatile Mass, Non Tender Extremity: Swelling (Swelling to the left dorsum hand. Slight warmth without erythema. No rash to upper or lower extremity. Cap refill less than 2 bilateral hands. Radial pulses palpable equal bilateral) Neurologic/Psychiatric: Alert, Oriented x3, Normal Mood/Affect Skin: Other (Swelling left dorsum hand with warmth. No area of inoculation) Progress/Results/Core Measures Suspected Sepsis SIRS Temperature: Pulse: 84 Respiratory Rate: 18 Blood Pressure 135 /88 Mean: 104 Results/Orders My Orders Orders - FAROOQ SORENSON Prednisone Tablet (Deltasone Tablet) (02/24/23 12:30) Famotidine Tablet (Pepcid Tablet) (02/24/23 12:30) Diphenhydramine Tablet (Benadryl Tablet) (02/24/23 12:30) Medications Given in ED Current Medications Medications Dose Ordered Sig/Paige Route Start Time Stop Time Status Last Admin Dose Admin Diphenhydramine HCl 25 mg ONCE ONCE PO 02/24/23 12:30 02/24/23 12:31 DC 02/24/23 12:26 25 MG Famotidine 20 mg ONCE ONCE PO 02/24/23 12:30 02/24/23 12:31 DC 02/24/23 12:26 20 MG Prednisone 50 mg ONCE ONCE PO 02/24/23 12:30 02/24/23 12:31 DC 02/24/23 12:26 50 MG Vital Signs/I&O 02/24/23 02/24/23 12:14 13:10 Temp 36.0 Pulse 84 80 Resp 18 18 B/P (MAP) 135/88 (104) 125/68 Pulse Ox 100 100 O2 Delivery Room Air Room Air Capillary Refill : Less Than 3 Seconds Blood Pressure Mean: 104 Departure Communication (PCP) Reviewed previous ER visits, H&P, lab testing. Bilateral upper eyelid swelling without erythema. Does not appear infection. Swelling noted to left dorsal hand. Warmth noted but neurovascular intact. No area of inoculation. Normal manager hospice strength.. Itching to the upper extremities. No difficulty breathing, shortness of breath or cough. No vomiting. Currently on penicillin and has about 1 day worth of antibiotic left. This was for a dental infection. Denies of any current dental pain. Has been taking ibuprofen. Patient vital signs s table. Afebrile. Denies of any change in urination, abdominal pain or flank pain. Concerning for systemic reaction potentially secondary to the penicillin versus localized reaction to a bite of some sort. Does not appear infectious. denies of any severe pain to these location. Patient was given prednisone 50 mg, Pepcid 20 mg and Benadryl 25mg. Slight Improvement of his symptoms. Will discharge with short burst steroids, Pepcid and Benadryl. Discussed stopping the penicillin. Discussed if any worsening symptoms return back to ED for further evaluation such as swelling, redness of the left hand. Discussed cool compresses to help with swelling. Recommend follow-up your PCP 2 to 3 days for reevaluation Impression Primary Impression: Swelling Disposition: 01 HOME, SELF-CARE Condition: Stable Departure-Patient Inst. Decision time for Depature: 12:41 Referrals: [facility] [place],LOCAL PHYSICIAN (PCP) Primary Care Physician Patient Instructions: Swelling Scripts Diphenhydramine HCl (Benadryl) 25 Mg Capsule 25 MG PO Q6H PRN for ITCHING, #14 CAP Prov: FAROOQ SORENSON 02/24/23 Famotidine (Pepcid) 20 Mg Tablet 20 MG PO DAILY for 4 Days, #4 TAB Prov: FAROOQ SORENSON 02/24/23 Prednisone (Prednisone) 20 Mg Tab 40 MG PO DAILY for 4 Days, #8 TAB Prov: FAROOQ SORENSON 02/24/23 Work/School Note: Work Release Form Date Seen in the Emergency Department: Feb 24, 2023 Return to Work: Feb 26, 2023 FAROOQ SORENSON Feb 24, 2023 12:20
[2023-02-24] MEDS ORDERED: diphenhydrAMINE 25 MG TAB (BENADRYL) PO ONE (12:30)
[2023-02-24] MEDS ORDERED: FAMOTIDINE 20 MG (PEPCID) TABLET PO ONE (12:30)
[2023-02-24] MEDS ORDERED: predniSONE 20 MG TAB PO ONE (12:30)
[2023-02-24] MEDS ORDERED: DIPH25CA79 PO (12:42)
[2023-02-24] MEDS ORDERED: PRD20T PO (12:42)
[2023-02-24] MEDS ORDERED: FAMO-119 PO (12:42)
[2023-02-24 13:10] VITALS: BP 125/68
== END 2023-02-24 13:10 | disposition home or self-care (01) ==
LOC: EDUNIT# 12:08 → ER 12:10
DX: R22.0 Localized swelling, mass and lump, head (principal); R22.32 Localized swelling, mass and lump, left upper limb; K04.7 Periapical abscess without sinus
CPT/HCPCS: 99283

== ENCOUNTER 2023-06-18 16:53 | Emergency (ER) | payer MEDICAID ==
[~2023-06-18 16:53] MED LIST changes: +DIPH25CA79 PO; +FAMO-119 PO; +PRD20T PO
[2023-06-18] MEDS ORDERED: AMOX1TAB12 PO (17:32)
--- NOTE | 2023-06-18 17:32 | ED EENT ---
History of Present Illness General Chief Complaint: Dental Problems/Pain Stated Complaint: DENTAL PAIN Nursing Triage Note: PT AMB TO FT WITH C/O POSS TOOTH ABSCESS ON A L BOTTOM TOOTH X3 DAYS. PT TOOK IBUPROFEN THIS AM WITHOUT RELIEF Source: patient Exam Limitations: no limitations History of Present Illness Date Seen by Provider: Jun 18, 2023 Time Seen by Provider: 17:23 Initial Comments 32-year-old male presents to the ER with complaint of left lower dental pain for the last 3 days. He states he has been taking ibuprofen for pain without relief. Denies any fevers. No swelling noted to face. Allergies and Home Medications Allergies Coded Allergies: No Known Drug Allergies (Unverified , 04/05/13) Patient Home Medication List Home Medication List Reviewed: Yes Albuterol Sulfate (Ventolin Hfa) 1 Puff Puff, 2 PUFF IH Q4H Prescribed by: RENETTA REYNA on 06/26/22 191 Amoxicillin/Potassium Clav (Amox Tr-K Clv 875-125 mg Tab) 875 Mg-125 Mg Tablet, 1 EACH PO BID Prescribed by: Marybel Monk on 06/18/23 1732 Clindamycin HCl (Clindamycin HCl) 300 Mg Capsule, 300 MG PO TID Prescribed by: RENETTA REYNA on 06/06/22 1720 D-Methorphan Hb/P-Epd Hcl/Bpm (Bromfed Dm Cough Syrup) 118 Ml Syrup, 5 ML PO Q4H PRN for COUGH Prescribed by: EILEEN MACK on 01/18/15 1321 Diphenhydramine HCl (Benadryl) 25 Mg Capsule, 25 MG PO Q6H PRN for ITCHING Prescribed by: RENETTA REYNA on 02/24/23 1242 Famotidine (Pepcid) 20 Mg Tablet, 20 MG PO DAILY Prescribed by: RENETTA REYNA on 02/24/23 1242 Hydrocodone/Acetaminophen (Hydrocodone-Acetamin 5-325 mg) 5 Mg-325 Mg Tablet, 1 TAB PO Q4H PRN for PAIN-MODERATE (5-7) Prescribed by: RENETTA REYNA on 06/06/22 1720 Ibuprofen (Ibuprofen) 800 Mg Tablet, 800 MG PO Q8H PRN for PAIN Prescribed by: RENETTA REYNA on 06/06/22 1720 Ibuprofen (Ibuprofen) 600 Mg Tablet, 600 MG PO Q6H Prescribed by: RENETTA REYNA on 01/24/23 1610 Penicillin V Potassium (Penicillin V Potassium) 500 Mg Tablet, 500 MG PO TID Prescribed by: YESSI BOWERS MD on 08/21/22 1054 Penicillin V Potassium (Penicillin V Potassium) 500 Mg Tablet, 500 MG PO BID Prescribed by: FAROOQ WINCHESTER on 02/12/23 1554 Prednisone (Prednisone) 20 Mg Tab, 40 MG PO DAILY Prescribed by: RENETTA REYNA on 02/24/23 1242 Review of Systems Review of Systems Constitutional: see HPI Past [id number]-Rbthgl-Ygsxmy Hx Patient Social History Tobacco Use?: Yes Tobacco type used: Cigarettes Substance use?: No Alcohol Use?: Yes Pt feels they are or have been: No Immunizations Up To Date Tetanus Booster (TDap): More than 5yrs First/Initial COVID19 Vaccinat: N/A Second COVID19 Vaccination Anthony: N/A Third COVID19 Vaccination Date: N/A Seasonal Allergies Seasonal Allergies: No Past Medical History Surgery/Hospitalization HX: DENIES Reproductive Disorders: No Family Medical History No Pertinent Family Hx Physical Exam Vital Signs Vital Signs - First Documented 06/18/23 17:17 Temp 36.1 Pulse 83 Resp 14 B/P (MAP) 145/83 (103) Pulse Ox 100 Height, Weight, BMI Height: 5'9" Weight: 135lbs. oz. [id number]; 23.00 BMI Method:Stated General Appearance: WD/WN, no apparent distress Mouth/Throat: dental tenderness, other (Port intention, multiple dental cavities) Neck: supple, normal inspection Cardiovascular: regular rate, rhythm Respiratory: lungs clear, normal breath sounds, no respiratory distress, no accessory muscle use Neurologic/Psychiatric: alert, normal mood/affect Skin: normal color, warm/dry Progress/Results/Core Measures Results/Orders Vital Signs/I&O 06/18/23 06/18/23 17:17 17:43 Temp 36.1 36.1 Pulse 83 83 Resp 14 14 B/P (MAP) 145/83 (103) 145/83 Pulse Ox 100 100 Blood Pressure Mean: 103 Progress Progress Note : Progress Note Patient seen and evaluated, resting comfortably in recliner, no acute distress. No obvious dental abscess noted, will go ahead and treat for possible dental abscess. Discharge instructions and return precautions provided. Departure Impression Primary Impression: Pain, dental Disposition: HOME, SELF-CARE Condition: Stable Departure-Patient Inst. Decision time for Depature: 17:30 Referrals: NO,LOCAL PHYSICIAN (PCP/Family) Primary Care Physician Patient Instructions: Tooth Abscess (DC) Add. Discharge Instructions: Complete full course of antibiotic as prescribed. You may take 1000 mg of Tylenol every 8 hours as needed for pain. You may take 800 mg of ibuprofen with food every 8 hours as needed for pain. Follow-up with dentist. Return for any new, concerning, or worsening symptoms. All discharge instructions reviewed with patient and/or family. Voiced understanding. Scripts Amoxicillin/Potassium Clav (Amox Tr-K Clv 875-125 mg Tab) 875 Mg-125 Mg Tablet 1 EACH PO BID for 7 Days, #14 TAB 0 Refills Prov: MARYBEL ESTRADA APRN 06/18/23 MARYBEL ESTRADA APRN Jun 18, 2023 17:32
[2023-06-18 17:43] VITALS: BP 145/83
== END 2023-06-18 17:45 | disposition home or self-care (01) ==
LOC: EDUNIT# 16:53 → ER 16:54
DX: K08.89 Other specified disorders of teeth and supporting structures (principal); F17.210 Nicotine dependence, cigarettes, uncomplicated
CPT/HCPCS: 99282

== ENCOUNTER 2023-08-10 16:59 | Emergency (ER) | payer MEDICAID ==
[~2023-08-10] VITALS: Ht 165.1 cm; Wt 72.6 kg
[~2023-08-10 16:59] MED LIST changes: +AMOX1TAB12 PO
[2023-08-10] MEDS ORDERED: AMOX1TAB12 PO (17:17)
[2023-08-10] MEDS ORDERED: NAPR-915 PO (17:17)
--- NOTE | 2023-08-10 17:18 | ED EENT ---
History of Present Illness General Stated Complaint: BACK LT SIDE TOOTH PAIN Source: patient Exam Limitations: no limitations History of Present Illness Date Seen by Provider: Aug 10, 2023 Time Seen by Provider: 17:15 Initial Comments Patient is a 33-year-old male who presents ED with left-sided dental pain. Dental pain over the past 2 days. He has had previous dental pain over the past few months. Did have a tooth on the right side evaluated by a dentist few months ago. Patient was treated with antibiotics with improvement. Denies of any specific injury. Pain with eating. Denies any facial swelling or redness. Denies ear pain, hearing loss, nausea, vomiting, diarrhea, headache. Has been taking ibuprofen without much improvement. Allergies and Home Medications Allergies Coded Allergies: No Known Drug Allergies (Unverified , 04/05/13) Patient Home Medication List Home Medication List Reviewed: Yes Albuterol Sulfate (Ventolin Hfa) 1 Puff Puff, 2 PUFF IH Q4H Prescribed by: RENETTA REYNA on 06/26/22 1917 Amoxicillin/Potassium Clav (Amox Tr-K Clv 875-125 mg Tab) 875 Mg-125 Mg Tablet, 1 EACH PO BID Prescribed by: Marybel Monk on 06/18/23 1732 Amoxicillin/Potassium Clav (Amox Tr-K Clv 875-125 mg Tab) 875 Mg-125 Mg Tablet, 1 EACH PO BID Prescribed by: RENETTA REYNA on 08/10/23 1717 Clindamycin HCl (Clindamycin HCl) 300 Mg Capsule, 300 MG PO TID Prescribed by: RENETTA REYNA on 06/06/22 1720 D-Methorphan Hb/P-Epd Hcl/Bpm (Bromfed Dm Cough Syrup) 118 Ml Syrup, 5 ML PO Q4H PRN for COUGH Prescribed by: EILEEN MACK on 01/18/15 1321 Diphenhydramine HCl (Benadryl) 25 Mg Capsule, 25 MG PO Q6H PRN for ITCHING Prescribed by: RENETTA REYNA on 02/24/23 1242 Famotidine (Pepcid) 20 Mg Tablet, 20 MG PO DAILY Prescribed by: RENETTA REYNA on 02/24/23 1242 Hydrocodone/Acetaminophen (Hydrocodone-Acetamin 5-325 mg) 5 Mg-325 Mg Tablet, 1 TAB PO Q4H PRN for PAIN-MODERATE (5-7) Prescribed by: RENETTA REYNA on 06/06/22 1720 Ibuprofen (Ibuprofen) 800 Mg Tablet, 800 MG PO Q8H PRN for PAIN Prescribed by: RENETTA REYNA on 06/06/22 1720 Ibuprofen (Ibuprofen) 600 Mg Tablet, 600 MG PO Q6H Prescribed by: RENETTA REYNA on 01/24/23 1610 Naproxen (Naproxen) 500 Mg Tablet, 500 MG PO Q12H Prescribed by: RENETTA REYNA on 08/10/23 1717 Penicillin V Potassium (Penicillin V Potassium) 500 Mg Tablet, 500 MG PO TID Prescribed by: YESSI BOWERS MD on 08/21/22 1054 Penicillin V Potassium (Penicillin V Potassium) 500 Mg Tablet, 500 MG PO BID Prescribed by: FAROOQ WINCHESTER on 02/12/23 1554 Prednisone (Prednisone) 20 Mg Tab, 40 MG PO DAILY Prescribed by: RENETTA REYNA on 02/24/23 1242 Review of Systems Review of Systems Constitutional: No chills, No diaphoresis, No fever, No malaise, No weakness Eyes: Denies Blurred Vision, Denies Drainage, Denies Decreased Acuity Ears: Denies Dizziness, Denies Pain Nose: denies clots, denies congestion Mouth: denies loose teeth; pain; denies bloody discharge, denies clear discharge Throat: denies pain, denies swelling, denies discharge Respiratory: No cough, No dyspnea on exertion Cardiovascular: No chest pain Gastrointestinal: No abdominal pain, No diarrhea, No nausea, No vomiting Musculoskeletal: No back pain, No joint pain Skin: No change in color, No change in hair/nails Past Ybozjbd-Wyyunu-Fompne Hx Immunizations Up To Date Tetanus Booster (TDap): More than 5yrs First/Initial COVID19 Vaccinat: N/A Second COVID19 Vaccination Anthony: N/A Third COVID19 Vaccination Date: N/A Seasonal Allergies Seasonal Allergies: No Past Medical History Surgery/Hospitalization HX: DENIES Reproductive Disorders: No Family Medical History No Pertinent Family Hx Physical Exam Height, Weight, BMI Height: 5'9" Weight: 135lbs. oz. 61.383551mk; 23.00 BMI Method:Stated General Appearance: WD/WN, no apparent distress Eyes: bilateral eye normal inspection, bilateral eye PERRL, bilateral eye EOMI, bilateral eye abnormal EOM Ears: bilateral ear auricle normal, bilateral ear canal normal, bilateral ear TM normal Nose: normal inspection Mouth/Throat: other (Left upper dental tenderness. Several fillings. Mild gum swelling without redness. No fluctuant mass. Mild left lower mandible tenderness. Mild left lower dental tenderness. 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 Mild decay. Mild gum swelling without erythema. No fluctuant mass. No facial swelling or redness. No parotid or submandibular tenderness. Have some mild discomfort to the left lower jaw. No clicking or pain with TMJ palpation. Bilateral TMs clear. No evidence of lymphadenopathy. Tolerating secretions. No bruits. Concern for dental infection. Will discharge with Augmentin. No history of dental infections in the past. Patient will need to follow-up with a dentist. Will discharge with naproxen. refused dental block. If any worsening symptoms such as facial swelling or redness fever unable tolerate secretions to return back to ED. No evidence of Jerson angina. No stridor. Vi rosette signs stable. No incision and drainage at this time. Impression Primary Impression: Pain, dental Disposition: 01 HOME, SELF-CARE Condition: Stable Departure-Patient Inst. Decision time for Depature: 17:16 Referrals: [facility] [place],LOCAL PHYSICIAN (PCP) Primary Care Physician Patient Instructions: Dental Pain Add. Discharge Instructions: Recommend follow-up with a dentist for further evaluation. Naproxen for pain. If any worsening symptoms such as severe pain, facial swelling or redness return back to ED Scripts Naproxen (Naproxen) 500 Mg Tablet 500 MG PO Q12H for 7 Days, #14 TAB Prov: FAROOQ SORENSON 08/10/23 Amoxicillin/Potassium Clav (Amox Tr-K Clv 875-125 mg Tab) 875 Mg-125 Mg Tablet 1 EACH PO BID for 7 Days, #14 TAB Prov: FAROOQ SORENSON 08/10/23 FAROOQ SORENSON Aug 10, 2023 17:18
[2023-08-10 17:44] VITALS: BP 129/73
== END 2023-08-10 17:44 | disposition home or self-care (01) ==
LOC: EDUNIT# 16:59 → ER 17:02
DX: K02.9 Dental caries, unspecified (principal); Z28.310 Unvaccinated for COVID-19
CPT/HCPCS: 99281